=== PATIENT | male | born 1970 | race Caucasian/White ===

== ENCOUNTER 2025-05-14 20:33 | Emergency (ER) | payer BC ==
[2025-05-14] MEDS ORDERED: Lidocaine 1% (PF) 30 ML VIAL ONE (21:27)
== END 2025-05-14 22:12 | disposition home or self-care (01) ==
LOC: CSHERS 20:33
DX: S51.811A Laceration without foreign body of right forearm, initial encounter (principal); W20.8XXA Other cause of strike by thrown, projected or falling object, initial encounter
CPT/HCPCS: 12002; 99282